=== PATIENT | male | born 1975 | race Caucasian/White ===

== ENCOUNTER 2017-04-10 16:11 | Emergency (ER) | payer OTHER ==
[~2017-04-10] VITALS: Ht 188 cm; Wt 125.0 kg
[2017-04-10 16:13] VITALS: TEMP 36.8; Ht 188 cm; Wt 125.0 kg
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
[2017-04-10 16:53] LABS: BASO % 0.5 %; BASO ABS # 0.03 K/uL (0-0.2); COMPLETE YES; EOS % 0.9 %; HEMATOCRIT 48.8 % (42-52); IG% 0.2 %; LYMPH % 28.7 %; LYMPH ABS # 1.89 K/uL (1.2-3.4); MEAN CELL VOLUME 89.1 fL (80-100); MEAN CORPUSCULAR HEMOGLOBIN 29.9 pg (25-34); MEAN CORPUSCULAR HGB CONC 33.6 g/dl (32-36); MEAN PLATELET VOLUME 10.5 fL (7.4-10.4); MONO % 5.9 %; NEUT % 63.8 %; PLATELET COUNT 143 K/uL (130-400); RED BLOOD COUNT 5.48 M/uL (4.7-6.1); WHITE BLOOD COUNT 6.58 K/uL (4.8-10.8)
[2017-04-10 17:13] LABS: BUN/CREATININE RATIO 18.8 (10-20); CREATININE 0.91 mg/dl (0.60-1.40); POTASSIUM 4.3 mmol/L (3.5-5.1)
[2017-04-10 17:16] LABS: ALB/GLOB RATIO 1.1 (0.9-2)
[2017-04-10] MEDS ORDERED: METF1TAB53 PO (17:21)
[2017-04-10] MEDS ORDERED: ERGO1CAP41 PO (17:21)
[2017-04-10] MEDS ORDERED: METH2.5T PO (17:21)
[2017-04-10] MEDS ORDERED: FOLI1TAB7 PO (17:21)
[2017-04-10 17:30] LABS: HEPATITIS B AB NEG
[2017-04-10 17:49] VITALS: BP 134/98; PULSE 90; O2SAT 95
[2017-04-11] MEDS ORDERED: RALT400T PO (00:27)
[2017-04-11] MEDS ORDERED: TRVHP PO (00:27)
== END 2017-04-10 17:49 | disposition home or self-care (01) ==
LOC: C.EDB 16:14 → C.EDD 17:49
DX: Z77.21 Contact with and (suspected) exposure to potentially hazardous body fluids (principal); Y99.0 Civilian activity done for income or pay; Y92.149 Unspecified place in prison as the place of occurrence of the external cause; E11.9 Type 2 diabetes mellitus without complications; Z79.899 Other long term (current) drug therapy